=== PATIENT | male | born 1955 | race Caucasian/White ===

== ENCOUNTER 2017-08-13 09:52 | Inpatient (IN) | payer OTHER ==
[2017-08-13] MEDS ORDERED: GABAPENTIN 300 MG CAP PO ONE ×2 (10:00)
[2017-08-13] MEDS ORDERED: ACETAMINOPHEN 500 MG TAB PO ONE ×2 (10:00)
[2017-08-13] MEDS ORDERED: fentaNYL 100 MCG/2 ML INJ IT ONE ×2 (10:00)
[2017-08-13] MEDS ORDERED: ceFAZolin 2 GM/SWFI 2 GM/20 ML SYR IVP ONE ×2 (10:00)
[2017-08-13] MEDS ORDERED: morphINE PF 5 MG/10 ML INJ IT ONE ×2 (10:00)
[2017-08-13] MEDS ORDERED: TRANEXAMIC ACID 1,000 MG in NS 100 ML IV ONE (10:00)
[2017-08-13] MEDS ORDERED: THROMBIN (BOVINE) 20,000 UNIT VIAL TP ONE ×4 (10:05→14:28)
[2017-08-13] MEDS ORDERED: CITRATE DEXTROSE SOLN 500 ML BAG ONE ×2 (10:05)
[2017-08-13] MEDS ORDERED: BACITRACIN 50,000 UNITS/10 ML SYR IRR ONE ×4 (10:06→14:21)
[2017-08-13] MEDS ORDERED: BUPIVACAINE 0.25% 30 ML SDV ONE ×2 (10:08)
[2017-08-13] MEDS ORDERED: LR 1,000 ML IV ONE ×2 (10:15)
[2017-08-13] MEDS ORDERED: LIDOCAINE 1% 2 ML INJ ID PRN ×2 (10:15)
[2017-08-13] MEDS ORDERED: ACETAMINOPHEN 500 MG TAB PO PRN ×2 (10:45)
[2017-08-13] MEDS ORDERED: ALBUTEROL 3 ML DEYVIAL IH PRN ×2 (10:45)
[2017-08-13] MEDS ORDERED: ONDANSETRON 4 MG/2 ML VIAL IVP PRN ×4 (10:45→16:26)
[2017-08-13] MEDS ORDERED: OXYCODONE/APAP 5/325 TAB PO PRN ×2 (10:45)
[2017-08-13] MEDS ORDERED: DEXAMETHASONE 4 MG/ML VIAL IVP PRN ×2 (10:45)
[2017-08-13] MEDS ORDERED: HYDROCODONE/APAP 5/325 TAB PO PRN ×2 (10:45)
[2017-08-13] MEDS ORDERED: MIDAZOLAM 2 MG/2 ML VIAL IVP ONE ×2 (10:45)
[2017-08-13] MEDS ORDERED: NALOXONE HCL 0.4 MG/ML INJ IVP PRN ×4 (10:45→16:26)
--- NOTE | 2017-08-13 10:47 | PDANEPAE ---
ANE History of Present Illness TLIF ANE Past Medical History - Cardiovascular History Hx Hypertension: Yes Hx Arrhythmias: Yes Hx Chest Pain: No Hx Coronary Artery / Peripheral Vascular Disease: Yes Hx CHF / Valvular Disease: No Hx Palpitations: No Cardiovascular History Comment: CARDIAC STENTS X6. HYPERLIPIDEMIA - Pulmonary History Hx COPD: No Hx Asthma/Reactive Airway Disease: No Hx Recent Upper Respiratory Infection: No Hx Oxygen in Use at Home: No Hx Sleep Apnea: Yes Sleep Apnea Screening Result - Last Documented: Positive - Neurologic History Hx Cerebrovascular Accident: No Hx Seizures: No Hx Dementia: No - Endocrine History Hx Diabetes: No - Renal History Hx Renal Disorders: No Renal History Comment: HX KIDNEY STONES - Liver History Hx Hepatic Disorders: No - Neurological & Psychiatric Hx Hx Neurological and Psychiatric Disorders: No - Cancer History Hx Cancer: No - Congenital Disorder History Hx Congenital Disorders: No - GI History Hx Gastrointestinal Disorders: No - Other Health History Other Health History: NEG - Chronic Pain History Chronic Pain: Yes (LOW BACK PAIN) - Surgical History Prior Surgeries: BACK SURGERY - DISC. REM KIDNEY STONES. STENTS CARDIAC X6. ANGIO - DR COLLAZO. CARPAL TUNNEL. TRIGGER FINGER ANE Review of Systems Review of Systems: - Exercise capacity METS (RN): 4 METS ANE Patient History - Allergies Allergies/Adverse Reactions: lisinopril Allergy (Verified 08/01/17 14:25) COUGH niacin [From Niaspan Extended-Release] Allergy (Verified 08/01/17 14:25) Rash - Home Medications Home Medications: Aspirin 81mg 10/30/09 [Last Taken 08/04/17] Plavix 10/30/09 [Last Taken 08/04/17] Losartan Potassium 08/01/17 [Last Taken 08/13/17 07:30] Metoprolol Succinate 08/01/17 [Last Taken 08/04/17] Rosuvastatin Calcium 08/01/17 [Last Taken 08/04/17] - NPO status NPO Since - Liquids (Date): 08/12/17 NPO Since - Liquids (Time): 18:30 NPO Since - Solids (Date): 08/12/17 NPO Since - Solids (Time): 18:30 - Smoking Hx Smoking Status: Never smoked - Family Anes Hx Family Hx Anesthesia Complications: NEG ANE Labs/Vital Signs - Vital Signs Blood Pressure: 164/103 Heart Rate: 76 Respiratory Rate: 16 O2 Sat (%): 96 Height: 177.8 cm Weight: 117.934 kg ANE Physical Exam - Airway Neck exam: FROM Mallampati Score: Class 2 - Pulmonary Pulmonary: clear to auscultation - Cardiovascular Cardiovascular: regular rate and rhythym - ASA Status ASA Status: III ANE Anesthesia Plan Anesthesia Plan: general endotracheal anesthesia
[2017-08-13] MEDS ORDERED: MIDAZOLAM 2 MG/2 ML VIAL ONE ×2 (10:48)
[2017-08-13] MEDS ORDERED: CHLORHEXIDINE GLUC HIBICLENS 118 ML BTL TP ONE ×2 (10:52)
[2017-08-13] MEDS ORDERED: REMIFENTANIL HCL 1 MG VIAL ONE ×14 (10:55→15:47)
[2017-08-13] MEDS ORDERED: PROPOFOL/EMULSION 500 MG/50 ML BOTTLE IV ONE ×12 (10:56→15:26)
[2017-08-13] MEDS ORDERED: SUCCINYLCHOLINE CHLORIDE*ANESTHESIA ONLY*200 MG/10 ML SYR IVP ONE ×2 (11:01)
[2017-08-13] MEDS ORDERED: HYDROmorphONE/DILAUDID 2 MG/ML INJ ONE ×2 (11:03)
--- NOTE | 2017-08-13 11:05 | PDHPUP ---
History & Physical Update H&P update statement: This history and physical update is based on an assessment of the patient which was completed after admission or registration (within 24 hours), but prior to the surgery/procedure. H&P update: H&P reviewed & patient examined, no change in patient's condition since H&P completed
[2017-08-13] MEDS ORDERED: DEXAMETHASONE 4 MG/ML VIAL ONE ×4 (11:30)
[2017-08-13] MEDS ORDERED: ONDANSETRON 4 MG/2 ML VIAL ONE ×2 (11:31)
[2017-08-13] MEDS ORDERED: METOCLOPRAMIDE 10 MG/2 ML VIAL ONE ×2 (11:31)
[2017-08-13] MEDS ORDERED: fentaNYL 100 MCG/2 ML INJ ONE ×4 (14:21→16:53)
[2017-08-13] MEDS ORDERED: ceFAZolin 1 GM VIAL ONE ×2 (14:49)
[2017-08-13] MEDS ORDERED: LABETALOL HCL 5 MG/ML 20 ML MDV ONE ×2 (16:18)
[2017-08-13] MEDS ORDERED: ONDANSETRON DISINTEGRATING 4 MG TAB PO PRN ×2 (16:26)
[2017-08-13] MEDS ORDERED: MAGNESIUM HYDROXIDE 30 ML UDCUP PO PRN ×2 (16:26)
[2017-08-13] MEDS ORDERED: diphenhydrAMINE 25 MG CAP PO PRN ×2 (16:26)
[2017-08-13] MEDS ORDERED: morphINE PCA 30 MG/30 ML PCA IV PRN ×2 (16:26)
[2017-08-13] MEDS ORDERED: BISACODYL 10 MG SUPP PR PRN ×2 (16:26)
[2017-08-13] MEDS ORDERED: LACTULOSE 20 GM/30 ML UDCUP PO PRN ×2 (16:26)
[2017-08-13] MEDS ORDERED: NS W/ 20 KCl/L 1,000 ML IV SCH ×2 (16:30)
--- NOTE | 2017-08-13 16:33 | SOAPPROG ---
SOAP Progress Note Assessment/Plan: Assessment: 62 yo M sp L2-5 TLIF Plan: stable to 3N Dr Adhikari to consult for bleeding from L4/5 disc space x-rays in am please call with neuro changes 08/13/17 16:32 Subjective: + back pain, no leg pain. Objective: Vital Signs Temp Pulse Resp BP Pulse Ox 36.6 C 76 16 164/103 H 96 08/13/17 10:20 08/13/17 10:47 08/13/17 10:47 08/13/17 10:47 08/13/17 10:47 Awake, alert PERRL, EOM, no facial droop ADALI x 4 except left DF chronically 0/5 + light touch abdomen soft non-tender ICD10 Worksheet Patient Problems: Problems Problem Status Onset Fusion of spine of lumbar region Acute - ICD10 Problem Qualifiers (1) Fusion of spine of lumbar region
[2017-08-13] MEDS ORDERED: HYDROmorphONE/DILAUDID 1 MG/ML INJ ONE ×2 (16:53)
[2017-08-13] MEDS: HYDROmorphONE/DILAUDID 1 MG/ML INJ IVP PRN ×6 (16:55→17:25)
[2017-08-13] MEDS: fentaNYL 100 MCG/2 ML INJ IVP PRN ×8 (16:55→17:26)
--- NOTE | 2017-08-13 17:54 | POSTANESTH ---
Post Anesthetic Evaluation Cardiovascular Status: Normal, Stable Respiratory Status: Normal, Stable Level of Consciousness/Mental Status: Can Participate in Eval Pain Control: Adequate, Prn Tx Ordered Nausea/Vomiting Control: Adequate, Prn Tx Ordered Complications Possibly Related to Anesthesia: None Noted
[2017-08-13] MEDS ORDERED: NS 500 ML IV ONE ×2 (19:04)
[2017-08-13] MEDS: FAMOTIDINE 20 MG TAB PO SCH ×2 (19:31)
[2017-08-13] MEDS: morphINE SR 30 MG TAB PO SCH ×2 (19:32)
[2017-08-13] MEDS: SENNOSIDES/DOCUSATE SODIUM TAB PO SCH ×2 (19:32)
[2017-08-13] MEDS: oxyCODONE IR 5 MG TAB PO PRN ×4 (19:33→23:28)
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
--- NOTE | 2017-08-13 23:02 | GOP ---
[f rep st] OPERATIVE REPORT DATE OF OPERATION: 08/13/2017 SURGEON: Hayder Owen MD PROFESSOR OF RELIGIOUS STUDIES: KELLY Hardin ANESTHESIA: General endotracheal. PREOPERATIVE DIAGNOSIS: Severe multilevel lumbar degenerative joint disease and disk space collapse with critical central canal and neural foraminal and lateral recess impingement. Loss of normal sagi ttal alignment (lordosis). Intractable back and leg pain and neurogenic claudication. Obesity. Surinder led conservative care. POSTOPERATIVE DIAGNOSIS: Severe multilevel lumbar degenerative joint disease and disk space collapse with critical central canal and neural foraminal and lateral recess impingement. Loss of normal sag ittal alignment (lordosis). Intractable back and leg pain and neurogenic claudication. Obesity. Fa iled conservative care. PROCEDURE PERFORMED: Left-sided far lateral transpedicular decompression at the L2-3, L3-4, and L4-5 levels with L2 through L5 posterior segmental (pedicle screw) fixation and posterolateral fusion wit h local autograft and bone morphogenic protein. L2-3, L3-4, and L4-5 posterior/transforaminal lumbar interbody fusion with 2 structural Peek interbody spacers, local autograft and bone morphogenic prot ein at each level. Use of intraoperative microscopy, fluoroscopy, and computer volumetric stereotact ic navigation with intraoperative neurophysiologic testing. Injection of intrathecal narcotic analge sics and subcutaneous and intramuscular local anesthesia for postoperative pain control. FINDINGS: ESTIMATED BLOOD LOSS: 400 cc. INDICATIONS: The patient is a 62-year-old obese man with intractable low back pain and left greater than right lower extremity neurogenic claudication and radicular symptoms secondary to severe multile aleksandar lumbar degenerative disk disease and disk space collapse with central canal, lateral recess, and neural foraminal encroachment. He has failed extensive conservative care and presents now for surgic al decompression and stabilization. DESCRIPTION OF PROCEDURE: After informed consent was obtained, the patient was taken to the operatin g room and placed in the prone position on the Solis table. The lumbosacral area was prepped and d raped in sterile fashion. After fluoroscopic localization of the correct levels, the subcutaneous an d intramuscular tissues were infiltrated with local anesthesia. A midline linear incision was then c reated from approximately L2 through L5. This was carried down to the fascial layer, which was then incised using monopolar electrocautery and carried in a subperiosteal plane along the spinous process es and out the lamina bilaterally. Intraoperative fluoroscopy was again utilized to verify the corre ct levels. Following this, dissection was carried out over the facet joints and the microscope was b rought in. After carefully dissecting all the bone free of soft tissue, left-sided far lateral trans pedicular decompressions were then performed with complete unroofing of the facet joints and neural f oramen as well as the central canal and bilateral lateral recesses as best I could at L2-3, L3-4, and L4-5. Following adequate decompression, the Axeda neuronavigational system was brought in and Diet TV computer volumetric stereotactic navigation, pedicle screws were placed at L2, L3, L4, and L5 bila terally. Each screw was tested neurophysiologically with monopolar electrostimulation and interpreta tion of the potentials by the surgeon. Only 1 screw stimulated low at 10 milliamps, and biplanar flu oroscopy verified that the screw was in excellent position. The screw was also removed and replaced and there were no cortical breaches. Following this, serial short-segment rods were placed first at L4-5, then at L3-4, then at L2-3, during which time distraction was created across each interspace an d complete diskectomies were performed with preparation of the endplates and placement of 2 structura l Peek interbody spacers, local autograft, and bone morphogenic protein for L2-3, L3-4, and L4-5 post erior/transforaminal lumbar interbody fusions. Following this, the short segment rods were removed a nd an appropriately sized longer cortney extending from L2 to L5 was placed and secured under near demetris l lordosis in order to prevent flat back syndrome. The remaining lamina and facet joints were then e xtensively decorticated and the residual local autograft along with bone morphogenic protein and mors elized allograft was placed out laterally for a posterolateral fusion from L2 through L5. A drain wa s then placed. 200 mcg of Duramorph along with 50 mcg of fentanyl were injected intrathecally for po stoperative pain control. The subcutaneous and intramuscular tissues were re-infiltrated with local anesthesia. The wound was closed in a layered fashion using interrupted Vicryl sutures followed by S jim-Strips on the skin. COMPLICATIONS: None. DISPOSITION: The patient was extubated and transferred to the recovery room in stable condition. /[id number]/MODL
[2017-08-13] MEDS: ACETAMINOPHEN 500 MG TAB PO SCH ×2 (23:27)
[2017-08-13] MEDS: DIAZEPAM 5 MG TAB PO PRN ×2 (23:28)
[2017-08-13] MEDS: ceFAZolin 2 GM/DEXTROSE 100 ML IV SCH ×2 (23:29)
[2017-08-13] MEDS: POLYETHYLENE GLYCOL 3350 17 GM PKT PO SCH ×2 (23:29)
[2017-08-14] MEDS: oxyCODONE IR 5 MG TAB PO PRN ×10 (03:11→22:16)
[2017-08-14 05:04] LABS: PLATELET COUNT 134 10^3/uL (150-400)
[2017-08-14] MEDS: ACETAMINOPHEN 500 MG TAB PO SCH ×6 (06:23→22:16)
[2017-08-14] MEDS: ceFAZolin 2 GM/DEXTROSE 100 ML IV SCH ×2 (06:24)
[2017-08-14] MEDS: METHOCARBAMOL 750 MG TAB PO PRN ×2 (06:29)
--- NOTE | 2017-08-14 08:11 | SOAPPROG ---
SOAP Progress Note Assessment/Plan: Assessment: 62-year-old gentleman presented to the hospital for elective spinal fusion intraoperative bleed from what appeared to be an arterial source stopped with pressure Solis Helm with 300 cc of dark blood overnight. Worry for pseudoaneurysm formation. Will obtain CTA scan of the abdomen and pelvis. Discussed with Dr. Berkowitz Alert oriented no distress lungs clear bilaterally heart regular. Increased left foot strength no foot drop. Solis-Helm approximately 100 cc of serosanguineous output 08/14/17 04:47 08/14/17 04:47 Patient ABO/Rh O POSITIVE 08/13/17 17:00 Plan: Serial hemoglobin. CT angiogram. Will sign off if this is normal 08/14/17 08:09 Objective: Vital Signs Temp Pulse Resp BP Pulse Ox 36.8 C 68 16 109/54 L 98 08/14/17 07:55 08/14/17 07:55 08/14/17 07:55 08/14/17 07:55 08/14/17 07:55 Laboratory Results 08/14/17 04:47 08/14/17 04:47 08/13/17 08/14/17 08/15/17 05:59 05:59 05:59 Intake Total 3200 Output Total 2515 Balance 685 ICD10 Worksheet Patient Problems: Problems Problem Status Onset Fusion of spine of lumbar region Acute
[2017-08-14] MEDS: morphINE SR 30 MG TAB PO SCH ×4 (08:13→20:19)
[2017-08-14] MEDS ORDERED: IOPAMIDOL (ISOVUE 370) 100 ML BTL IV ONE ×2 (08:51)
[2017-08-14] MEDS: ATENOLOL 25 MG TAB PO SCH ×2 (09:00)
[2017-08-14] MEDS: METOPROLOL SUCCINATE XR 25 MG TAB PO SCH ×2 (09:00)
[2017-08-14] MEDS: HYDROCHLOROTHIAZIDE 12.5 MG CAP PO SCH ×2 (09:00)
[2017-08-14] MEDS: LOSARTAN POTASSIUM 50 MG TAB PO SCH ×2 (09:00)
[2017-08-14] MEDS: SENNOSIDES/DOCUSATE SODIUM TAB PO SCH ×4 (09:02→20:20)
[2017-08-14] MEDS: FAMOTIDINE 20 MG TAB PO SCH ×4 (09:02→20:20)
[2017-08-14] MEDS: ENOXAPARIN 40 MG/0.4 ML SYR SC SCH ×2 (09:02)
[2017-08-14] MEDS: ROSUVASTATIN CALCIUM 40 MG TAB PO SCH ×2 (09:02)
[2017-08-14] MEDS: POLYETHYLENE GLYCOL 3350 17 GM PKT PO SCH ×6 (09:03→22:17)
--- NOTE | 2017-08-14 10:21 | SOAPPROG ---
SOAP Progress Note Assessment/Plan: Assessment: POD #1 sp L2-5 TLIF. Had bright red blood from L4/5 disc space during surgery. Trauma team involved due to this issue. can move left foot and toes today, could not do it well preop Pain well controlled Plan: LSO when out of bed continue LUNA drain PT/OT as tolerated needs lumbar xrays today if he can tolerate them CTA ordered today per trauma team due to bright red blood from L4/5 disc space intraop. Subjective: Awake, alert, comfortable. States the RNs have been doing a good job managing his pain. He is happy today b/c he can move his left foot and toes for the first time in 2 years. He reports 2 years of foot drop prior to surgery Objective: Vital Signs Temp Pulse Resp BP Pulse Ox 36.8 C 68 16 109/54 L 98 08/14/17 07:55 08/14/17 07:55 08/14/17 07:55 08/14/17 07:55 08/14/17 07:55 Laboratory Results 08/14/17 04:47 08/14/17 04:47 08/13/17 08/14/17 08/15/17 05:59 05:59 05:59 Intake Total 3200 Output Total 2515 Balance 685 Neuro: Left DF/EHL 3-/5, PF is 5/5 sensation intact to Light touch in bilateral LE RLE 5/5 throughout Dressing:Mild saturation at top of dressing LUNA: 390ml since surgery ICD10 Worksheet Patient Problems: Problems Problem Status Onset Fusion of spine of lumbar region Acute
[2017-08-14] MEDS: DIAZEPAM 5 MG TAB PO PRN ×4 (13:37→20:19)
[2017-08-14] MEDS ORDERED: NS 1,000 ML IV ONE ×2 (15:00)
--- NOTE | 2017-08-14 15:26 | ASMTCMCOM ---
CM Note CM Note Notes: Patient is POD #1 L2-5 TLIF and doing well. OT has cleared for home; PT eval pending. Patient lives independently with and will likely have no needs upon discharge. If he does, CM can assist with arranging homecare. Date Signed: 08/14/2017 03:26 PM Electronically Signed By:Selam Hui RN
[2017-08-14] MEDS: GABAPENTIN 300 MG CAP PO SCH ×2 (20:18)
[2017-08-15] MEDS: oxyCODONE IR 5 MG TAB PO PRN ×10 (02:28→23:55)
[2017-08-15] MEDS: ACETAMINOPHEN 500 MG TAB PO SCH ×6 (05:20→20:58)
[2017-08-15] MEDS: DIAZEPAM 5 MG TAB PO PRN ×4 (07:49→18:35)
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
[2017-08-15] MEDS: ENOXAPARIN 40 MG/0.4 ML SYR SC SCH ×2 (09:20)
[2017-08-15] MEDS: morphINE SR 30 MG TAB PO SCH ×4 (09:20→20:59)
[2017-08-15] MEDS: SENNOSIDES/DOCUSATE SODIUM TAB PO SCH ×4 (09:20→20:58)
[2017-08-15] MEDS: FAMOTIDINE 20 MG TAB PO SCH ×4 (09:20→20:59)
[2017-08-15] MEDS: ROSUVASTATIN CALCIUM 40 MG TAB PO SCH ×2 (09:20)
[2017-08-15] MEDS: HYDROCHLOROTHIAZIDE 12.5 MG CAP PO SCH ×2 (09:21)
[2017-08-15] MEDS: LOSARTAN POTASSIUM 50 MG TAB PO SCH ×2 (09:21)
[2017-08-15] MEDS: ATENOLOL 25 MG TAB PO SCH ×2 (09:21)
[2017-08-15] MEDS: METOPROLOL SUCCINATE XR 25 MG TAB PO SCH ×2 (09:21)
[2017-08-15] MEDS: POLYETHYLENE GLYCOL 3350 17 GM PKT PO SCH ×6 (09:23→20:58)
[2017-08-15] MEDS: METHOCARBAMOL 750 MG TAB PO PRN ×2 (11:31)
[2017-08-15] MEDS: GABAPENTIN 300 MG CAP PO SCH ×2 (20:58)
[2017-08-16] MEDS: ACETAMINOPHEN 500 MG TAB PO SCH ×4 (05:51→14:55)
[2017-08-16] MEDS: oxyCODONE IR 5 MG TAB PO PRN ×6 (05:51→15:35)
--- NOTE | 2017-08-16 07:37 | SOAPPROG ---
SOAP Progress Note Assessment/Plan: Assessment: 62 yo M POD #3 L2-5 TLIF Plan: stable and doing well overall :) PT/OT patient may need inpatient rehab post op x-rays look great please call with neuro changes discussed with Dr Staton 08/13/17 16:32 08/16/17 07:35 Subjective: continued back pain, no leg pain, continued leg numbness. Objective: Vital Signs Temp Pulse Resp BP Pulse Ox 37.1 C 75 17 98/54 L 97 08/15/17 23:45 08/15/17 23:45 08/15/17 23:45 08/15/17 23:45 08/15/17 23:45 Laboratory Results 08/14/17 14:50 08/14/17 04:47 08/15/17 08/16/17 08/17/17 05:59 05:59 05:59 Intake Total 1450 850 Output Total 1240 1455 Balance 210 -605 AAOx4, +FC PERRL, EOMI, no facial droop 5/5 + light touch C/D/I ICD10 Worksheet Patient Problems: Problems Problem Status Onset Fusion of spine of lumbar region Acute - ICD10 Problem Qualifiers (1) Fusion of spine of lumbar region
[2017-08-16 08:01] VITALS: RESP 16; TEMP 98.4
[2017-08-16] MEDS: LOSARTAN POTASSIUM 50 MG TAB PO SCH ×2 (08:15)
[2017-08-16] MEDS: ATENOLOL 25 MG TAB PO SCH ×2 (08:16)
[2017-08-16] MEDS: HYDROCHLOROTHIAZIDE 12.5 MG CAP PO SCH ×2 (08:25)
[2017-08-16] MEDS: ROSUVASTATIN CALCIUM 40 MG TAB PO SCH ×2 (08:25)
[2017-08-16] MEDS: FAMOTIDINE 20 MG TAB PO SCH ×2 (08:25)
[2017-08-16] MEDS: morphINE SR 30 MG TAB PO SCH ×2 (08:25)
[2017-08-16] MEDS: METOPROLOL SUCCINATE XR 25 MG TAB PO SCH ×2 (08:26)
[2017-08-16] MEDS: SENNOSIDES/DOCUSATE SODIUM TAB PO SCH ×2 (08:26)
[2017-08-16] MEDS: ENOXAPARIN 40 MG/0.4 ML SYR SC SCH ×2 (08:27)
[2017-08-16] MEDS: POLYETHYLENE GLYCOL 3350 17 GM PKT PO SCH ×4 (08:27→15:35)
[2017-08-16] MEDS: DIAZEPAM 5 MG TAB PO PRN ×2 (15:35)
--- NOTE | 2017-08-16 15:47 | ASMTCMCOM ---
CM Note CM Note Notes: Pt medically stable for d/c, therapies clear pt for home. No CM d/c needs identified. Date Signed: 08/16/2017 03:46 PM Electronically Signed By:HILLARY Dunne
[2017-08-16 16:08] VITALS: BP 119/66; PULSE 77; O2SAT 91
--- NOTE | 2017-08-17 09:12 | ASDISCHSUM ---
Discharge Information Plan Status:Home with No Needs Medically Cleared to Leave: Discharge Date:08/16/2017 05:18 PM CM D/C Disposition:Home, Routine, Self-Care ADT D/C Disposition:Home, Routine, Self-Care Projected Discharge Date:08/16/2017 05:18 PM Transportation at D/C: Discharge Delay Reason: Follow-Up Date:08/16/2017 05:18 PM Discharge Slot: Final Diagnosis: Placement Information Patient Contact Information Contact Name:CHIQUI Relationship: Address:[address] Work Phone: [facility] Phone: [facility]/Zip Code:[place] [address] Email: Financial Information Financial Class:HMO and PPO Plans Primary Plan Desc:[employer] Primary Plan Number:[id number] Secondary Plan Desc: Secondary Plan Number: Assessment Information [facility] CM Progress Note CM Note CM Note Notes: Patient is POD #1 L2-5 TLIF and doing well. OT has cleared for home; PT eval pending. Patient lives independently with and will likely have no needs upon discharge. If he does, CM can assist with arranging homecare. Date Signed: 08/14/2017 03:26 PM Electronically Signed By:Selam Hui RN [facility] CM Progress Note CM Note CM Note Notes: Pt medically stable for d/c, therapies clear pt for home. No CM d/c needs identified. Date Signed: 08/16/2017 03:46 PM Electronically Signed By:HILLARY Dunne Intervention Information
--- NOTE | 2017-08-17 09:12 | ASDISCHSUM ---
Discharge Information Plan Status:Home with No Needs Medically Cleared to Leave: Discharge Date:08/16/2017 05:18 PM CM D/C Disposition:Home, Routine, Self-Care ADT D/C Disposition:Home, Routine, Self-Care Projected Discharge Date:08/16/2017 05:18 PM Transportation at D/C: Discharge Delay Reason: Follow-Up Date:08/16/2017 05:18 PM Discharge Slot: Final Diagnosis: Placement Information Patient Contact Information Contact Name:CHIQUI Relationship: Address:[address] Work Phone: [facility] Phone: [facility]/Zip Code:[place] [address] Email: Financial Information Financial Class:HMO and PPO Plans Primary Plan Desc:[employer] Primary Plan Number:[id number] Secondary Plan Desc: Secondary Plan Number: Assessment Information [facility] CM Progress Note CM Note CM Note Notes: Patient is POD #1 L2-5 TLIF and doing well. OT has cleared for home; PT eval pending. Patient lives independently with and will likely have no needs upon discharge. If he does, CM can assist with arranging homecare. Date Signed: 08/14/2017 03:26 PM Electronically Signed By:Selam Hui RN [facility] CM Progress Note CM Note CM Note Notes: Pt medically stable for d/c, therapies clear pt for home. No CM d/c needs identified. Date Signed: 08/16/2017 03:46 PM Electronically Signed By:HILLARY Dunne Intervention Information
--- NOTE | 2017-08-17 09:12 | ASDISCHSUM ---
Discharge Information Plan Status:Home with No Needs Medically Cleared to Leave: Discharge Date:08/16/2017 05:18 PM CM D/C Disposition:Home, Routine, Self-Care ADT D/C Disposition:Home, Routine, Self-Care Projected Discharge Date:08/16/2017 05:18 PM Transportation at D/C: Discharge Delay Reason: Follow-Up Date:08/16/2017 05:18 PM Discharge Slot: Final Diagnosis: Placement Information Patient Contact Information Contact Name:CHIQUI Relationship: Address:[address] Work Phone: [facility] Phone: [facility]/Zip Code:[place] [address] Email: Financial Information Financial Class:HMO and PPO Plans Primary Plan Desc:[employer] Primary Plan Number:[id number] Secondary Plan Desc: Secondary Plan Number: Assessment Information [facility] CM Progress Note CM Note CM Note Notes: Patient is POD #1 L2-5 TLIF and doing well. OT has cleared for home; PT eval pending. Patient lives independently with and will likely have no needs upon discharge. If he does, CM can assist with arranging homecare. Date Signed: 08/14/2017 03:26 PM Electronically Signed By:Selam Hui RN [facility] CM Progress Note CM Note CM Note Notes: Pt medically stable for d/c, therapies clear pt for home. No CM d/c needs identified. Date Signed: 08/16/2017 03:46 PM Electronically Signed By:HILLARY Dunne Intervention Information
== END 2017-08-16 17:18 | disposition home or self-care (01) | DRG 460 ==
LOC: F3N 09:52
PROVIDERS: ADMIT Neurological Surgery; ATTEND Neurological Surgery
PROC: 8E0WXBZ Computer Assisted Procedure of Trunk Region (ICD-10-PCS; principal; 2017-08-13 11:15)
PROC: 00NY0ZZ Release Lumbar Spinal Cord, Open Approach (ICD-10-PCS; principal; 2017-08-13 11:15)
PROC: 4A1004G Monitoring of Central Nervous Electrical Activity, Intraoperative, Open Approach (ICD-10-PCS; principal; 2017-08-13 11:15)
PROC: 0SG10AJ Fusion of 2 or more Lumbar Vertebral Joints with Interbody Fusion Device, Posterior Approach, Anterior Column, Open Approach (ICD-10-PCS; principal; 2017-08-13 11:15)
PROC: 0ST20ZZ Resection of Lumbar Vertebral Disc, Open Approach (ICD-10-PCS; principal; 2017-08-13 11:15)
DX: M48.061 Spinal stenosis, lumbar region without neurogenic claudication (principal); D62 Acute posthemorrhagic anemia; M51.36 Other intervertebral disc degeneration, lumbar region; I10 Essential (primary) hypertension; E78.5 Hyperlipidemia, unspecified; Z95.5 Presence of coronary angioplasty implant and graft
CPT/HCPCS: 97116-GP; 97161-GP; 97165-GO; 97530-GO; 97530-GP; 97535-GO; C1713; C1762; J0171; J0330; J0690; J1100; J1170; J1650; J2250; J2274; J2405; J2704; J2765; J3010; J3490; J7060; Q9967